=== PATIENT | female | born 1970 | race Caucasian/White ===

== ENCOUNTER → 2019-09-15 | Outpatient (CLI) | payer BC, OTHER, SELFPAY | LOC: M LABSMTC 13:47 | PROVIDERS: ATTEND Family Medicine | DX: Z11.59 Encounter for screening for other viral diseases (principal) ==

== ENCOUNTER 2022-08-22 06:07 | Day surgery (SDC) | payer OTHER ==
[~2022-08-22] VITALS: Ht 175.3 cm; Wt 123.3 kg
[~2022-08-22 06:07] MED LIST: ASPI-1 PO; CIPROFLOXACIN 400 MG in IV 1 EA IV ONE; FLUT50SP17 INH; LOPI600T PO; PANT40TA29 PO
[2022-08-22] MEDS ORDERED: LR 1,000 ML IV SCH ×2 (06:20→09:15)
[2022-08-22] MEDS ORDERED: propofoL 200 MG/20 ML VIAL As Ordered ONE (06:56)
[2022-08-22] MEDS ORDERED: ONDANSETRON 4MG 2ML VIAL As Ordered ONE (06:56)
[2022-08-22] MEDS ORDERED: LIDOCAINE 2% 100MG/5ML SDV (FOR ANES.) As Ordered ONE (06:57)
[2022-08-22] MEDS ORDERED: MIDAZOLAM INJ 2MG/2ML VIAL As Ordered ONE (06:59)
[2022-08-22] MEDS ORDERED: fentaNYL 100 MCG/2 ML INJECTION As Ordered ONE (07:00)
[2022-08-22] MEDS ORDERED: POLYSPORIN OPHTH OINT 3.5 GM As Ordered ONE (07:01)
[2022-08-22] MEDS ORDERED: POVIDONE-IODINE 5% OPHTH PREP SOL 30ML As Ordered ONE (07:01)
[2022-08-22] MEDS ORDERED: LIDOCAINE 2% W/EPINEPHRINE 20ML VIAL **PRES FREE As Ordered ONE (07:01)
[2022-08-22] MEDS ORDERED: LACRILUBE (AKWA TEARS) OPHTH OINT 3.5GM As Ordered ONE (07:51)
[2022-08-22] MEDS ORDERED: HYDROMORPHONE HCL 0.5 MG/ 0.5 ML SYRINGE IV PRN (09:15)
[2022-08-22] MEDS ORDERED: ONDANSETRON 4MG 2ML VIAL IV PRN (09:15)
[2022-08-22] MEDS ORDERED: fentaNYL 100 MCG/2 ML INJECTION IV PRN (09:15)
[2022-08-22] MEDS ORDERED: oxyCODONE 5MG TAB PO PRN (09:15)
[2022-08-22 10:48] VITALS: BP 144/82
== END 2022-08-22 10:45 | disposition home or self-care (01) ==
LOC: M SDC 06:07
PROVIDERS: ATTEND Plastic Surgery Surgery of the Hand
DX: C44.310 Basal cell carcinoma of skin of unspecified parts of face (principal); I51.9 Heart disease, unspecified; K92.9 Disease of digestive system, unspecified; Z79.899 Other long term (current) drug therapy; Z79.82 Long term (current) use of aspirin; F17.210 Nicotine dependence, cigarettes, uncomplicated; Z88.1 Allergy status to other antibiotic agents; Z88.8 Allergy status to other drugs, medicaments and biological substances; Z95.5 Presence of coronary angioplasty implant and graft
CPT/HCPCS: 11646; 12052; 88305; J0744; J1100; J2250; J2405; J3010

== ENCOUNTER → 2023-08-10 | Outpatient (CLI) | payer OTHER ==
[~2023-08-10] MED LIST changes: -CIPROFLOXACIN 400 MG in IV 1 EA IV ONE; -FLUT50SP17 INH; +FLUTISP INH
== END ==
LOC: M RAD 13:49
PROVIDERS: ATTEND Family Medicine
DX: Z12.2 Encounter for screening for malignant neoplasm of respiratory organs (principal); F17.210 Nicotine dependence, cigarettes, uncomplicated

== ENCOUNTER → 2024-08-16 | Outpatient (CLI) | payer OTHER ==
[~2024-08-16] MED LIST changes: +LIDOCAINE 1% MDV 20ML VIAL As Ordered ONE
[2024-08-16 07:15] VITALS: BP 118/73; TEMP 97.1; O2SAT 100
== END ==
LOC: M IRPRO 07:03
PROVIDERS: ATTEND Otolaryngology
DX: E04.2 Nontoxic multinodular goiter (principal)